=== PATIENT | female | born 1985 | race African-American/Black ===

== ENCOUNTER 2021-11-04 15:42 | Outpatient (CLI) | payer OTHER, SELFPAY ==
[2021-11-04 16:16] LABS: Basophils Absolute Auto 0.1 K/mm3 (0.0-0.1); Basophils Percent Auto 0.6 % (0.2-1.2); Eosinophils Percent Auto 0.1 % (0-4.4); Hematocrit 39.3 % (37.0-47.0); Hemoglobin 13.1 g/dL (12.0-15.0); Immature Granulocyte Absolute 0.04 K/mm3 (0.00-0.031); Immature Granulocyte Percent A 0.4 % (0-0.5); Lymphocytes Absolute Auto 0.98 K/mm3 (0.9-3.2); Mean Corpuscular HGB Conc 33.3 g/dl (32-36); Mean Corpuscular Hemoglobin 29.8 pg (26-34); Mean Corpuscular Volume 89.5 fl (80-100); Mean Platelet Volume 9.6 fl (7.4-10.4); Monocytes Absolute Auto 0.7 K/mm3 (0.1-0.6); Neutrophils Percent Auto 81.9 % (45.5-73.1); Platelet Count Result 289 k/mm3 (150-375); Red Blood Count 4.39 M/mm3 (4.2-5.4); Red Cell Distribution Width 12.5 % (11.5-14.5); White Blood Count 9.8 K/mm3 (4.5-10.0)
[2021-11-04 16:24] LABS: Alanine Aminotransferase 29 U/L (4-35); Albumin Level 4.6 g/dL (3.5-5.1); Alkaline Phosphatase 65 U/L (38-126); Anion Gap 10 mmol/L (8-16); Aspartate Amino Transferase 50 U/L (14-36); Bilirubin,Total 0.9 mg/dL (0.2-1.3); Blood Urea Nitrogen 9 mg/dL (7-17); Calcium 9.4 mg/dL (8.4-10.2); Carbon Dioxide 23 mmol/L (22-30); Chloride 106 mmol/L (98-107); Estimated Glomerular Filt Rate > 60; Glucose 144 mg/dL (65-110); Lipase 247 U/L (23-300); Sodium 139 mmol/L (137-145)
[2021-11-04 16:29] LABS: Pregnancy On Board Control Positive; Urine Pregnancy Test Negative
[2021-11-04 16:30] LABS: Add Urine Microscopic? YES; Appearance Urine Clear (Clear); Bacteria Urine Trace /hpf; Bilirubin Urine Negative (Negative); Blood Urine Negative (Negative); Color Urine Amber (Yellow); Glucose Urine UA Negative (Negative); Ketones Urine Trace mg/dL (Negative); Leukocyte Esterase Ur Negative LEU/UL (Negative); Mucus Urine Heavy /lpf; Nitrate Urine Negative (Negative); Protein Urine 2+ mg/dL (Negative); Specific Grav Ur 1.027 (1.001-1.035); Squamous Epithelial Cell Urine Occasional /hpf (Few); WBC Urine 0-3 /hpf
[2021-11-04 16:37] LABS: Prothrombin Time 12.8 Seconds (11.1-14.7)
[2021-11-04 16:38] LABS: Partial Thromboplastin Time 27.2 SECONDS (22.3-36.8)
== END 2021-11-04 15:43 | disposition home or self-care (01) ==
LOC: ANHLAB 15:50
PROVIDERS: PCP Family Medicine; Visit Provider Family Medicine
DX: R10.9 Unspecified abdominal pain (principal)
CPT/HCPCS: 80053; 81001; 81025; 83690; 85025; 85610; 85730; 87081; 87880

== ENCOUNTER 2021-11-16 11:39 | Outpatient (CLI) | payer OTHER, SELFPAY ==
[2021-11-16 12:08] LABS: Basophils Absolute Auto 0.1 K/mm3 (0.0-0.1); Basophils Percent Auto 0.8 % (0.2-1.2); Eosinophils Percent Auto 0.3 % (0-4.4); Hemoglobin 12.7 g/dL (12.0-15.0); Immature Granulocyte Absolute 0.02 K/mm3 (0.00-0.031); Immature Granulocyte Percent A 0.3 % (0-0.5); Lymphocytes Absolute Auto 1.31 K/mm3 (0.9-3.2); Lymphocytes Percent Auto 17.7 % (18.3-44.2); Mean Corpuscular HGB Conc 33.4 g/dl (32-36); Mean Corpuscular Hemoglobin 29.5 pg (26-34); Mean Corpuscular Volume 88.4 fl (80-100); Mean Platelet Volume 9.6 fl (7.4-10.4); Monocytes Absolute Auto 0.6 K/mm3 (0.1-0.6); Monocytes Percent Auto 7.7 % (2.6-8.5); Neutrophils Absolute Auto 5.4 K/mm3 (1.3-6.7); Neutrophils Percent Auto 73.2 % (45.5-73.1); Platelet Count Result 292 k/mm3 (150-375); Red Cell Distribution Width 12.7 % (11.5-14.5); White Blood Count 7.4 K/mm3 (4.5-10.0)
[2021-11-16 12:20] LABS: Alanine Aminotransferase 21 U/L (4-35); Albumin Level 4.7 g/dL (3.5-5.1); Alkaline Phosphatase 68 U/L (38-126); Anion Gap 10 mmol/L (8-16); Aspartate Amino Transferase 27 U/L (14-36); Bilirubin,Total 0.9 mg/dL (0.2-1.3); Blood Urea Nitrogen 12 mg/dL (7-17); Calcium 9.5 mg/dL (8.4-10.2); Carbon Dioxide 21 mmol/L (22-30); Chloride 108 mmol/L (98-107); Cholesterol 177 mg/dL (0-200); Estimated Glomerular Filt Rate > 60; Glucose 98 mg/dL (65-110); HDL Direct 44 mg/dL; Potassium 3.8 mmol/L (3.4-5.0); Sodium 139 mmol/L (137-145); Triglycerides 67 mg/dL (<150)
[2021-11-16 12:31] LABS: LDL Cholesterol Direct 102 mg/dL
[2021-11-16 12:50] LABS: Free T4 Free Thyroxine 1.01 ng/mL (0.78-2.19); Vitamin D 25 Hydroxy 40.4 ng/mL
[2021-11-16 16:51] LABS: Total Triiodothyronine (T3) 1.23 NG/ML (0.97-1.69)
== END 2021-11-16 11:40 | disposition home or self-care (01) ==
PROVIDERS: PCP Family Medicine; Visit Provider Family Medicine
DX: M62.81 Muscle weakness (generalized) (principal); E55.9 Vitamin D deficiency, unspecified; I10 Essential (primary) hypertension; E03.9 Hypothyroidism, unspecified; E78.5 Hyperlipidemia, unspecified
CPT/HCPCS: 36415; 80053; 80061; 82306; 84439; 84443; 84480; 85025

== ENCOUNTER 2021-12-13 15:29 | Emergency (ER) | payer OTHER, SELFPAY ==
--- NOTE | ~2021-12-13 | CT_ITS ---
EXAMINATION: CT abdomen pelvis w con INDICATION: Generalized abdominal pain TECHNIQUE: Computed tomographic images of the abdomen and pelvis were obtained after the administrati on of 100 cc of Omnipaque 350 intravenous contrast. The dose-length product (DLP) was 692.80 mGy-cm. Automated exposure control and iterative reconstruction technique were employed. COMPARISON: None available FINDINGS: The lung bases are clear. The heart size is normal. The gallbladder is surgically absent. T he liver, spleen, pancreas, and adrenal glands are normal. The kidneys are unremarkable. No pathologi carlene enlarged abdominal or pelvic lymph nodes are identified. There is a 3.7 cm mildly hyperattenuat ing cystic lesion of the left ovary. There is no free intraperitoneal gas or evidence of bowel obstru ction. IMPRESSION: 1. No CT correlate for the patient's symptoms. 2. Probable complicated left ovarian cyst. Follow-up with nonemergent pelvic ultrasound is recommende d. Reviewed, dictated and finalized at location F. HING MACHINE OPERATOR IMPRESSION: 1. No CT correlate for the patient's symptoms. 2. Probable complicated left ovarian cyst. Follow-up with nonemergent pelvic ul trasound is recommended.
[2021-12-13 15:41] VITALS: BP 151/81; PULSE 118; RESP 18; TEMP 37.2; O2SAT 100
[2021-12-13 17:47] VITALS: BP 156/93; PULSE 106; TEMP 37.1; O2SAT 100
--- NOTE | 2021-12-13 18:28 | ED.GENADULT ---
HPI - General Adult General Chief complaint: Unspecified <Ann-Marie Tolbert APRN - Last Filed: 12/13/21 19:10> Stated complaint: extreme pain through entire body <Ann-Marie Tolbert APRN - Last Filed: 12/13/21 19:10> Time Seen by Provider: 12/13/21 18:22 <Ann-Marie Tolbert SUPERVISOR PROCESS TESTING - Last Filed: 12/13/21 19:10> Source: patient <Ann-Marie Tolbert SUPERVISOR PROCESS TESTING - Last Filed: 12/13/21 19:10> Mode of arrival: wheelchair <Ann-Marie Tolbert APRN - Last Filed: 12/13/21 19:10> Limitations: no limitations <Ann-Marie Tolbert APRN - Last Filed: 12/13/21 19:10> History of Present Illness HPI narrative: 36 y/o female presents to the ER for complaints of generalized pain from her lower chest to her thighs. She is not able to describe the pain and becomes confrontational when asked to give any specifics. She says that she has had this pain since May but no one is finding out the cause or doing anything about it. She says that she has seen her PCP a few times for this problem but says they have not done any work up for this. She is sitting in a wheelchair and refuses to stand and walk 5 feet to triage room chair. She says that she needs to be scanned, that she needs IV pain medication and that she needs to be admitted. She says that she had a tubal ligation done in March of last year and that all of her problems started after this. She is not having any fever. No n/v/d. Her bowels have been normal. She denies any urinary symptoms. She says that she smokes marijauna for her pain but she says she just can't do this anymore. She can't smoke enough marijauna to control her pain. <Ann-Marie Tolbert APRN - Last Filed: 12/13/21 19:10> Related Data Allergies/adverse reactions: Allergies Allergy/AdvReac Type Severity Reaction Status Date / Time No Known Allergies Allergy Unverified 03/11/21 11:53 <Ann-Marie Tolbert APRN - Last Filed: 12/13/21 19:10> Review of Systems Constitutional: Constitutional: Reports body ache(s) and Reports fatigue <Ann-Marie Tolbert SUPERVISOR PROCESS TESTING - Last Filed: 12/13/21 19:10> Eyes: Eyes: Denies blurry vision and Denies diplopia <Ann-Marie Tolbert SUPERVISOR PROCESS TESTING - Last Filed: 12/13/21 19:10> ENT: Denies dizziness and Denies headache(s) <Ann-Marie Tolbert, SUPERVISOR PROCESS TESTING - Last Filed: 12/13/21 19:10> Cardiovascular: Cardiovascular: Denies chest pain and Denies lightheadedness <Ann-Marie Tolbert, SUPERVISOR PROCESS TESTING - Last Filed: 12/13/21 19:10> Respiratory: Respiratory: Denies chest congestion, Denies cough and Denies dyspnea <Ann-Marie Tolbert, SUPERVISOR PROCESS TESTING - Last Filed: 12/13/21 19:10> Gastrointestinal: Gastrointestinal: Reports as per HPI and Reports no additional gastrointestinal complaints <Ann-Marie Tolbert SUPERVISOR PROCESS TESTING - Last Filed: 12/13/21 19:10> Genitourinary: Genitourinary: Denies dysuria <Ann-Marie Tolbert, SUPERVISOR PROCESS TESTING - Last Filed: 12/13/21 19:10> Musculoskeletal: Musculoskeletal: Reports no additional musculoskeletal complaints, Reports as per HPI and Reports myalgias <Ann-Marie Tolbert, SUPERVISOR PROCESS TESTING - Last Filed: 12/13/21 19:10> Neurologic: Reports system reviewed and no additional complaints, except as documented, Denies headache(s) and Denies numbness <Ann-Marie Tolbert SUPERVISOR PROCESS TESTING - Last Filed: 12/13/21 19:10> Psychiatric: Psychiatric: Reports other (agitated behavior in triage) <Ann-Marie Tolbert, SUPERVISOR PROCESS TESTING - Last Filed: 12/13/21 19:10> Endocrine: Endocrine: Reports no additional endocrine complaints <Ann-Marie Tolbert SUPERVISOR PROCESS TESTING - Last Filed: 12/13/21 19:10> Hematologic/Lymphatic: Hematologic/Lymphatic: Reports no additional hematologic/lymphatic complaints <Ann-Marie Tolbert SUPERVISOR PROCESS TESTING - Last Filed: 12/13/21 19:10> PMFSH Family History Family History: Family History Grandparent Hypertension Family history of coronary artery disease Other Family history of lupus erythematosus <Ann-Marie Tolbert APRN - Last Filed: 12/13/21 19:10> Social Histor
[2021-12-13 18:50] LABS: Basophils Absolute Auto 0.1 K/mm3 (0.0-0.1); Basophils Percent Auto 0.5 % (0.2-1.2); Eosinophils Percent Auto 0.2 % (0-4.4); Hematocrit 38.3 % (37.0-47.0); Hemoglobin 12.7 g/dL (12.0-15.0); Immature Granulocyte Absolute 0.05 K/mm3 (0.00-0.031); Immature Granulocyte Percent A 0.4 % (0-0.5); Lymphocytes Absolute Auto 2.38 K/mm3 (0.9-3.2); Lymphocytes Percent Auto 20.9 % (18.3-44.2); Mean Corpuscular HGB Conc 33.2 g/dl (32-36); Mean Corpuscular Hemoglobin 29.4 pg (26-34); Mean Corpuscular Volume 88.7 fl (80-100); Mean Platelet Volume 9.5 fl (7.4-10.4); Monocytes Absolute Auto 0.9 K/mm3 (0.1-0.6); Monocytes Percent Auto 7.9 % (2.6-8.5); Neutrophils Percent Auto 70.1 % (45.5-73.1); Platelet Count Result 310 k/mm3 (150-375); Red Blood Count 4.32 M/mm3 (4.2-5.4); Red Cell Distribution Width 12.7 % (11.5-14.5); White Blood Count 11.4 K/mm3 (4.5-10.0)
[2021-12-13 19:01] LABS: Rheumatoid Factor < 8.6 IU/ML (<12)
[2021-12-13 19:03] LABS: Alanine Aminotransferase 15 U/L (4-35); Albumin Level 4.6 g/dL (3.5-5.1); Alkaline Phosphatase 69 U/L (38-126); Anion Gap 9 mmol/L (8-16); Aspartate Amino Transferase 26 U/L (14-36); Bilirubin,Total 0.9 mg/dL (0.2-1.3); Blood Urea Nitrogen 9 mg/dL (7-17); CRP < 0.5 mg/dL (<1.0); Calcium 9.4 mg/dL (8.4-10.2); Carbon Dioxide 21 mmol/L (22-30); Chloride 109 mmol/L (98-107); Estimated CRCL calculation 115 ml/min; Estimated Glomerular Filt Rate > 60; Glucose 111 mg/dL (65-110); Lipase 229 U/L (23-300); Potassium 3.4 mmol/L (3.4-5.0); Sodium 139 mmol/L (137-145)
[2021-12-13 19:46] LABS: Erythrocyte Sedimentation Rate 14 mm/hr (0-20)
[2021-12-13] MEDS: SODIUM CHLORIDE 0.9% IV 1,000 ML 999 ML IV CONT (22:06)
[2021-12-13] MEDS: KETOROLAC 30 MG/ML VIAL (*BKC) IV PUSH (22:29)
[2021-12-13 22:38] LABS: Add Urine Microscopic? YES; Appearance Urine Clear (Clear); Bilirubin Urine Negative (Negative); Blood Urine Negative (Negative); Color Urine Yellow (Yellow); Glucose Urine UA Negative (Negative); Ketones Urine 1+ mg/dL (Negative); Leukocyte Esterase Ur Negative LEU/UL (Negative); Mucus Urine Heavy /lpf; Nitrate Urine Negative (Negative); Protein Urine Negative (Negative); Squamous Epithelial Cell Urine Occasional /hpf (Few); Urobilinogen Urine Negative mg/dL (<2.0); WBC Urine 0-3 /hpf
--- NOTE | 2021-12-14 00:26 | PC.NURSE ---
Pt currently in ED lobby in . Per ED RN, pt's mother will be coming to pick her up.
[2021-12-14 00:29] VITALS: BP 156/100; PULSE 98; RESP 18; O2SAT 100
--- NOTE | 2021-12-14 00:33 | PC.NURSE ---
Addendum entered by Nitish Gomez RN 12/14/21 01:12: IV was removed from patient prior to discharge. pt stating I can't twist my back and I can't stand and I have all these bruises that the doctor didn't look at. at this time pt stood up and began taking off clothing and pointing at abdomen and sides saying Do you not see all these bruises!? no bruises were observed by this RN. pt then points at legs and states Look at these bruises here! and my veins are popping out! this RN noted no bruises once again and noted no veins popping out or any thing else out of the ordinary and this RN communicated this to the pt. Original Note: pt very upset upon discharge. stating How can you be discharging me when you havent found anything, there's something seriously wrong! I can't lay flat, my back pain is a 10/10, I can't even have sex anymore because I'm so sick, I normally only have sex to relieve my back pain, I feel like I'm dying. pt also states My family member was admitted for 30 days and they only found his cancer after thirty days and I need to be admitted... EDP was at the bedside multiple times to talk to pt and explain pt was stable for discharge. This RN educated pt to follow up with PCP to possibly have further labs and tests done to address pt concerns.
--- NOTE | 2021-12-14 00:34 | PC.NURSE ---
Pt yelling that she is still in pain and she doesn't want to go. Pt's mother reports she won't take pt home bc she can't drive at night . Pt drove here and her car is currently in the [address] in front of the ED. This RN and ED charge nurse currently speaking with pt and her mother, who continue to yell at staff that no pain medication was prescribed for pt's pain, and pt's pcp told her to come to ED.
--- NOTE | 2021-12-14 00:59 | PC.NURSE ---
flask cleaner called to intake/triage. This RN observed patient screaming hysterically that she can't go home, that something is really wrong with her, and refusing to leave with her mother. Upon arrival I spoke with the patients mother who stated I can't take her home like this, You all need to admit her to this hospital. This RN explained that the blood work, and imaging all showed that the patient was medically cleared to be discharged, and that the patient had been discharged to follow up with her pcp. Mother states I am not taking her home, you need to see her for her nerve pain, you need to send her to a psych facility. This RN asked the patient if she wanted to be checked back in for her nerve pain, or if she was SI/HI and or had a plan on how to hurt herself and or anyone else. Patient stated I am going to pray to Gareth and all the book of revelations to heal. Patient denies SI/HI and has no plan/intentions to harm herself or others at this time. Mother proceeded to elementary instructional coach the patient by saying You need to tell them the that you will kill yourself because of this pain, you cant be treated like this. We have had her to 3 other hospitals, [facility], and some place in [place]. This RN explained that if she wants to be seen again we can always check her back in and see her for what ever complaint that she wishes, patient states I want medicine, I cant keep going with this pain. The mother then stated I am not supposed to drive at night, I will come back tomorrow and pick her up. This RN explained that she is discharged and can not be held in the er over night. Pt mother stated what about her insurance, cant they give her a ride to take her home? This RN proceeded to speak with Britany at [employer] and set up a ride. Pt was seen ambulatory with steady gait to get into Dr[facility] [employer] [facility] - [place] Liang at [phone].
--- NOTE | 2021-12-14 01:23 | PC.NURSE ---
Addendum entered by LISETH Jacobo 12/14/21 01:27: Correct time of phone call was 0015. Original Note: 0045 With patient's permission, updated patient's mother. Advised her of test results, imaging results, and that she was being discharged home. Advised her to follow up with her primary care doctor. Advised to take acetaminophen/ibuprofen as needed for pain. All questions answered. Mom stated that she would be on the way to pick her up.
== END 2021-12-14 00:03 | disposition home or self-care (01) ==
PROVIDERS: Nurse Practitioner Family; Emergency Provider Emergency Medicine; PCP Family Medicine
DX: F45.9 Somatoform disorder, unspecified (principal); R93.89 Abnormal findings on diagnostic imaging of other specified body structures
CPT/HCPCS: 36415; 74177; 80053; 81001; 81025; 83690; 85025; 85652; 86038; 86140; 86430; 96361; 96374; 99284; J1885; J7030; Q9967

== ENCOUNTER 2022-07-19 00:14 | Day surgery (SDC) | payer MEDICARE, MEDICAID, SELFPAY ==
[2022-07-15 08:37] VITALS: BMI 27.0
--- NOTE | 2022-07-15 08:45 | PC.NURSE ---
Report to the Outpatient Waiting Room, entrance under the green pavilion located off [facility], at time 0930 on date 07/19/22. OR Time: 1130. Time changes happen often and if your time is changed the preop area will call you the afternoon before. - You and your visitor will be asked to self-screen and do not enter if you have any COVID symptoms. - Only one visitor and NO children visitors are allowed at this time. - The patient visitor is requested to leave or wait in car when not with patient due to restrictions. - A mask is required within the hospital. Patients may have clear liquids (water, carbonated beverages, clear teas, apple juice) until 3 hours prior to surgery with a maximum of 20 ounces. - No food from midnight until time of surgery Take the following medications with a SIP of water the morning of surgery: N/A Medications to discontinue per physician: N/A Date to take last dose: N/A Please no make-up, nail spanish, hairspray, perfume, deodorant, or body powder the day of surgery. No jewelry (including any body piercings) or valuables the day of surgery, leave them at home. Please take a shower or bath the night before, or the morning of, surgery with an antibacterial soap. Wear comfortable, loose fitting clothing. - Jewelry must be removed prior to entering the operating room. Rings and piercings that are not removed may be cut off. - The hospital will not accept responsibility for valuables. - Please leave all valuables, including medications, at home the day of surgery. If you are going home after surgery, a licensed airport driver must drive you home. - NO public transportation without another adult. - We recommend that an adult stay with you for 24 hours following discharge. - We also recommend that you do not drive, make important decision, drink alcoholic beverages, or take any drugs that were not prescribed by your health care provider for at least 24 hours after your discharge time. Follow any additional instructions given to you from your surgeon. If you or anyone in your household have experienced Covid symptoms in the past week, please notify your surgeon or the nurse liaison at the phone number below for possible testing. Telephone instructions given to PT - ROCKY RAE and asked if any additional questions and then verbalized understanding. Patient advised to call surgeon office or pre surgery nurse liaison [phone] if any additional questions.
--- NOTE | ~2022-07-19 | US_ITS ---
EXAMINATION: US guide intraoperative INDICATION: Surgical placement of IUD TECHNIQUE: Intraoperative sonographic images of the uterus are submitted for review. COMPARISON: None available FINDINGS: The IUD appears to be in expected position in the endometrial canal. Please refer to proced ure note for full details. IMPRESSION: 1. Please refer to procedure note for full details. Reviewed, dictated and finalized at location A.
[2022-07-19] MEDS: LACTATED RINGERS 1,000 ML 30 ML IV CONT (10:40)
[2022-07-19] MEDS: ACETAMINOPHEN 500 MG TABLET 1000 MG PO (10:40)
--- NOTE | 2022-07-19 10:41 | P.PNAN_ITS ---
Anes - Initial Pre Proc Eval Procedure: Operation Date: 07/19/22 11:30 Proposed Procedures p Hysteroscopy with Dilation and Curettage, Possible Myosure, Placement of Kyleena Intrauterine Device - Jennifer Ching DO Date/Time: 07/19/22 10:41 Surgeon: Jennifer Ching DO Pre Op Diagnosis: Abnormal Uterine bleeding Patient Data Age: 37 Gender: F Height: 1.64 m Weight: 72.5 kg Allergies Allergy/AdvReac Type Severity Reaction Status Date / Time No Known Allergies Allergy Unverified 07/15/22 08:36 Home Medications Medication Instructions Recorded Confirmed Type No Home Medications 07/15/22 07/15/22 History Patient hx anesthesia problems: none Family hx anesthesia problems: none Results Review: All pre-operative results and documents have been reviewed as part of the pre- operative evaluation. [facility] Family History Family History Grandparent Hypertension Family history of coronary artery disease Other Family history of lupus erythematosus Social History Social History Smoking status: Former smoker Tobacco type: cigarettes Second hand tobacco smoke exposure: No Additional smoking assessment comments: DID NOT GIVE END DATE OR HISTORY Alcohol intake: never Substance use: current Substance use type: marijuana Living arrangements: with family Spiritual care concerns: No Anes - Eval Final PreProcedure Day of Procedure 07/19/22 10:41 Patient weight: overweight Heart: regular rate and rhythm Lungs: clear to auscultation and normal air movement Airway: Mallampati scale class II Neurological: alert and oriented Last oral intake: >/= 8 hours ASA classification: II Emergent: no Anesthetic plan: proceed Anesthesia type and monitoring: general GIVS and LMA Results Review: All pre-operative results and documents have been reviewed as part of the pre-o perative evaluation. Informed Consent: The patient's anesthetic plan and its attendant risks and benefits were discussed with the patient/family/POA. Questions were solicited and answers provided to the satisfaction of the patient/family/POA.
[2022-07-19 10:52] VITALS: BP 138/90; PULSE 86; RESP 14; TEMP 36.6; O2SAT 100
--- NOTE | 2022-07-19 11:52 | P.HP_ITS ---
H&P: HPI History of Present Illness Date/Time: 07/19/22 11:52 Chief Complaint: I'm here for my D&C Narrative: Patient here for hysteroscopy, D&C and Kyleena placement for AUB and dysmenorrhea. Review of Systems Review of Systems: All systems reviewed & are unremarkable except as noted in HPI and below PMFSH Family History Family History Grandparent Hypertension Family history of coronary artery disease Other Family history of lupus erythematosus Social History Social History Smoking status: Former smoker Tobacco type: cigarettes Second hand tobacco smoke exposure: No Additional smoking assessment comments: DID NOT GIVE END DATE OR HISTORY Alcohol intake: never Substance use: current Substance use type: marijuana Living arrangements: with family Spiritual care concerns: No Meds Home Medications and Allergies Home Medications Medication Instructions Recorded Confirmed Type No Home Medications 07/15/22 07/15/22 History Allergies Allergy/AdvReac Type Severity Reaction Status Date / Time No Known Allergies Allergy Verified 07/19/22 10:57 Vital Signs Vital Signs - 24 hr 07/19/22 10:52 Temperature 36.6 C Pulse Rate 86 Respiratory Rate 14 Blood Pressure 138/90 Pulse Oximetry 100 Oxygen Delivery Room Air Exam Const: General: comfortable and no acute distress Neck: Neck: supple Resp: Effort & Inspection: normal respiratory effort Auscultation: clear to auscultation bilaterally Cardio: Rate: regular rate Rhythm: regular rhythm GI: GI Palp: Yes Soft to palpation Auscultation: normal bowel sounds Skin: Wounds: no wounds Neuro: General: gait normal Speech: normal speech Motor exam (neuro): 5/5 motor strength present throughout Psych: Mental Status: mental status grossly normal Affect: normal affect Assessment and Plan Assessment and plan (1) Abnormal uterine bleeding: Code(s): N93.9 - Abnormal uterine and vaginal bleeding, unspecified Status: Acute (2) Dysmenorrhea: Code(s): N94.6 - Dysmenorrhea, unspecified Status: Acute Plan Hysteroscopy, D&C, possible Myosure. Kyleena IUD placement
--- NOTE | 2022-07-19 11:52 | WPDHPUPDATE1 ---
History and Physical Update Update Date/Time: 07/19/22 11:52 History and Physical has been reviewed, including an updated exam of the patient. There are NO changes in the patient's condition. Risks, benefits, and alternatives have been discussed and questions answered. Patient agrees to proceed with procedure.
[2022-07-19] MEDS: LIDOCAINE HCL 1% PF 30 ML VIAL INFILTRATE (12:35)
--- NOTE | 2022-07-19 12:41 | SUR.OPER ---
Surgeon brought in [facility] IUD from office. 19.5MG S/N [id number] EXP: LOT#: [id number]
[2022-07-19 12:42] VITALS: BP 139/90; PULSE 88; RESP 12; O2SAT 100
--- NOTE | 2022-07-19 12:50 | P.OP_ITS ---
Procedure Note - Detailed Date of Procedure 07/19/22 Pre-op Diagnosis Abnormal Uterine bleeding Dysmenorrhea Post-op Diagnosis Same Procedure Performed Hysteroscopy, D&C, Kyleena IUD placement Surgeon Jennifer Ching DO Epidemiology Investigator Jordyn Berg Indications Abnormal uterine bleeding, dysmenorrhea Findings Normal appearing vulva and vaginal canal. Large cervix. The contour and size of the uterine cavity were completely normal. Uterus sounded to 7 cm. Both tubal ostia were visualized. No endometrial masses or lesions. Description of Procedure Patient was taken to the operating room where she was placed under IV sedation. No preoperative antibiotics were indicated. A time-out was performed. A speculum was placed in the vagina and the anterior lip of the cervix was grasped with a single-tooth tenaculum. Paracervical block was performed using plain lidocaine. The cervix was sequentially dilated up to accommodate the hysteroscope. The scope was introduced and a survey of the endometrial cavity revealed a normal size and contour, no lesions or masses. Both tubal ostia were visualized. The scope was then removed and the uterine cavity was sounded to a depth of 7 cm. A thorough sharp and and a moderate amount of tissue was returned. This was passed off for pathology. The IUD was then prepared. The IUD was inserted under direct visualization with ultrasound through the abdominal wall. The device was pulled back 1 cm, the arms were opened and the device was placed back against the fundus. Fundal location was confirmed with ultrasound. The insertion catheter was removed and the strings were trimmed to 3 cm. The tenaculum was removed and the puncture sites were noted to be hemostatic. All instruments were removed and the vagina was wiped clean of blood clots. The patient was taken to the recovery room in stable condition. All instrument and sponge counts were correct at the conclusion of the procedure. Estimated Blood Loss 5 IV Fluids 800 Drains No Packing No Pathology Yes Complications No immediate complications Condition Stable Disposition PACU
[2022-07-19 13:15] VITALS: BP 151/95; PULSE 124; RESP 20
[2022-07-19] MEDS: oxyCODONE HCL (*CRX) 5 MG TAB IR PO (13:33)
[2022-07-19 13:45] VITALS: BP 145/99; PULSE 86; RESP 16
[2022-07-19 14:15] VITALS: BP 140/80; PULSE 89
[2022-07-19 14:45] VITALS: BP 126/87; PULSE 74
== END 2022-07-19 15:03 | disposition home or self-care (01) ==
PROVIDERS: PCP Family Medicine; Visit Provider Obstetrics & Gynecology Gynecologic Oncology
PROC: 0U5B8ZZ Destruction of Endometrium, Via Natural or Artificial Opening Endoscopic (ICD-10-PCS; CPT 58563; principal; 2022-07-19 11:30)
DX: N93.9 Abnormal uterine and vaginal bleeding, unspecified (principal); N94.6 Dysmenorrhea, unspecified; Z30.430 Encounter for insertion of intrauterine contraceptive device; F12.90 Cannabis use, unspecified, uncomplicated; Z87.891 Personal history of nicotine dependence
CPT/HCPCS: 58558; 76998; 88305; A9270; J2250; J2704; J3010; J7030; J7120

== ENCOUNTER 2024-08-02 22:59 | Emergency (ER) | payer MEDICARE, MEDICAID, SELFPAY ==
[2024-08-02 23:02] VITALS: BP 181/94; PULSE 126; RESP 18; TEMP 36.5; O2SAT 100
[2024-08-03] MEDS: SODIUM CHLORIDE 0.9% IV 1,000 ML 999 ML IV CONT (01:29)
[2024-08-03 01:36] LABS: Basophils Absolute Auto 0.1 K/mm3 (0.0-0.1); Basophils Percent Auto 0.7 % (0.2-1.2); Eosinophils Percent Auto 0.1 % (0-4.4); Hematocrit 39.1 % (37.0-47.0); Hemoglobin 13.5 g/dL (12.0-15.0); Immature Granulocyte Absolute 0.06 K/mm3 (0.00-0.031); Immature Granulocyte Percent A 0.5 % (0-0.5); Lymphocytes Absolute Auto 1.93 K/mm3 (0.9-3.2); Lymphocytes Percent Auto 16.5 % (18.3-44.2); Mean Corpuscular HGB Conc 34.5 g/dl (32-36); Mean Corpuscular Volume 86.9 fl (80-100); Mean Platelet Volume 9.2 fl (7.4-10.4); Monocytes Absolute Auto 0.9 K/mm3 (0.1-0.6); Monocytes Percent Auto 7.6 % (2.6-8.5); Neutrophils Absolute Auto 8.8 K/mm3 (1.3-6.7); Neutrophils Percent Auto 74.6 % (45.5-73.1); Platelet Count Result 329 k/mm3 (150-375); Red Cell Distribution Width 12.6 % (11.5-14.5); White Blood Count 11.7 K/mm3 (4.5-10.0)
[2024-08-03 01:44] LABS: Add Urine Microscopic? YES; Appearance Urine Clear (Clear); Bacteria Urine None Seen /hpf; Bilirubin Urine Negative (Negative); Blood Urine 3+ (Negative); Color Urine Dark Yellow (Yellow); Glucose Urine UA Trace mg/dL (Negative); Ketones Urine 2+ mg/dL (Negative); Leukocyte Esterase Ur Negative LEU/UL (Negative); Nitrate Urine Negative (Negative); Non Pathogenic Casts 0-2; Protein Urine 2+ mg/dL (Negative); Specific Grav Ur 1.031 (1.001-1.035); Squamous Epithelial Cell Urine None Seen /hpf (Few); WBC Urine 0-5 /hpf (0-3); pH Urine 5.5 (5.0-9.0)
[2024-08-03 01:46] LABS: Alanine Aminotransferase 43 U/L (6-35); Albumin Level 4.7 g/dL (3.5-5.1); Alkaline Phosphatase 63 U/L (38-126); Anion Gap 9 mmol/L (4-12); Aspartate Amino Transferase 39 U/L (14-36); Bilirubin,Total 1.3 mg/dL (0.2-1.3); Blood Urea Nitrogen 16 mg/dL (7-17); Calcium 9.5 mg/dL (8.4-10.2); Carbon Dioxide 26 mmol/L (22-30); Chloride 106 mmol/L (98-107); Estimated Glomerular Filt Rate > 60; Glucose 113 mg/dL (65-110); Potassium 3.1 mmol/L (3.4-5.0); Sodium 141 mmol/L (137-145)
--- NOTE | 2024-08-03 01:49 | ED.PSYCH ---
HPI - Psych General Chief Complaint: Psychiatric Symptoms <FELIPE Elizabeth Last Filed: 08/03/24 03:23> Stated Complaint: psych <FELIPE Elizabeth Last Filed: 08/03/24 03:23> Time Seen by Provider: 08/03/24 00:21 <FELIPE Elizabeth Last Filed: 08/03/24 03:23> Source: patient and family <FELIPE Elizabeth Last Filed: 08/03/24 03:23> Mode of arrival: ambulatory <FELIPE Elizabeth Last Filed: 08/03/24 03:23> Limitations: no limitations <FELIPE Elizabeth Last Filed: 08/03/24 03:23> History of Present Illness HPI Narrative: Patient is a 39-year-old female who presents to the ED with concern for . Patient reports that she is approximately 43 weeks and 5 days gestation. she is unsure which number brain is for her. She does have of 3 children of her own at home. She states yesterday her water broke and she lost her mucus plug. She does currently complain of pain to her crotch. Denies abdominal pain. She does not currently see an OBGYN. Patient has hx of bipolar disorder. at bedside reports that she has been off of her medications for several years. He states she has had episodes like this before where she believes she is . <FELIPE Elizabeth Last Filed: 08/03/24 03:23> Related Data Home Medications: Home Medications Medication Instructions Recorded Confirmed olanzapine 15 mg tablet 15 mg PO DAILY 01/18/23 <FELIPE Elizabeth Last Filed: 08/03/24 03:23> Allergies/Adverse Reactions: Allergies Allergy/AdvReac Type Severity Reaction Status Date / Time No Known Allergies Allergy Verified 04/12/23 09:57 <FELIPE Elizabeth Last Filed: 08/03/24 03:23> Review of Systems Review of Systems: All systems reviewed & are unremarkable except as noted in HPI. <Lily Koenig PA-C - Last Filed: 08/03/24 03:23> All systems reviewed & are unremarkable except as noted in HPI and below <Lily Koenig PA-C - Last Filed: 08/03/24 03:23> PMFSH Past Medical History Medical History: Medical History (Updated 08/03/24 @ 04:58 by Alex Zhou MD) Anxiety Bipolar disorder <Lily Koenig PA-C - Last Filed: 08/03/24 03:23> Family History Family History: Family History Grandparent Hypertension Family history of coronary artery disease Father Cancer Other Family history of lupus erythematosus <Lily Koenig PA-C - Last Filed: 08/03/24 03:23> Social History Social History: Social History Smoking status: Former smoker Tobacco type: cigarettes Second hand tobacco smoke exposure: No Additional smoking assessment comments: DID NOT GIVE END DATE OR HISTORY Alcohol intake: never Substance use: current Substance use type: marijuana Living arrangements: alone Occupation/Education: unemployed Spiritual care concerns: No Agree to blood products: No <Lily Koenig PA-C - Last Filed: 08/03/24 03:23> Exam Narrative: GENERAL: Well appearing, well-nourished, non-toxic, in no acute distress. HEAD: Normocephalic, atraumatic. RESPIRATORY: Airway patent, respirations nonlabored. Clear to auscultation bilaterally, no rales, rhonchi, wheezing. CARDIOVASCULAR: Tachycardic with regular rhythm without murmurs, rubs, or gallops. ABDOMINAL: Soft, no significant tenderness throughout abdomen. Abdomen does not appear gravid. Normoactive BS. MUSCULOSKELETAL: Moves all extremities. No gross deformities. SKIN: Warm, dry, normal color. NEURO: A&O X3. Speech clear. Cranial nerves II-XII grossly intact. Steady gait. No ataxic movements. PSYCHIATRIC: Flat affect. Cooperative. Does not appear acutely externally psychotic. <Lily Koenig PA-C - [place]
[2024-08-03 01:59] LABS: Acetaminophen < 10 ug/mL (10-30); Ethanol < 10 mg/dL (<10); Salicylate < 1.0 mg/dL (2-20)
[2024-08-03 02:05] LABS: Pregnancy On Board Control Positive; Urine Pregnancy Test Negative
[2024-08-03 02:06] VITALS: BP 178/84; PULSE 118; RESP 20; TEMP 36.7; O2SAT 97
[2024-08-03 02:10] LABS: BEDSIDEPREGUCG Negative (Negative)
[2024-08-03 02:12] LABS: Influenza A QL RT-PCR Negative (Negative); Influenza B QL RT-PCR Negative (Negative); SARS-CoV-2 RNA PCR Negative (Negative)
[2024-08-03 02:16] LABS: Thyroid Stimulating Hormone 0.342 uIU/mL (0.465-4.680)
[2024-08-03 02:18] LABS: Amphetamine Screen Urine Negative (Negative); Barbiturate Screen Urine Negative (Negative); Benzodiazepines Screen Urine Negative (Negative); Cannabinoid Screen Urine Positive (Negative); Cocaine Screen Urine Negative (Negative); Methadone Screen Urine Negative (Negative); Opiate Screen Urine Negative (Negative); Phencyclidine Screen Urine Negative (Negative)
[2024-08-03] MEDS: POTASSIUM CHLORIDE 20 MEQ ER TABLET 40 MEQ PO (02:42)
== END 2024-08-03 06:08 | disposition home or self-care (01) ==
PROVIDERS: Emergency Provider Physician Assistant
DX: F22 Delusional disorders (principal); F31.9 Bipolar disorder, unspecified; F99 Mental disorder, not otherwise specified; Z20.822 Contact with and (suspected) exposure to COVID-19
CPT/HCPCS: 36415; 80053; 80143; 80179; 80307; 81001; 81025; 82077; 83735; 84443; 85025; 87636; 96360; 96361; 99284; A9270; J7030

== ENCOUNTER 2025-01-17 15:05 | Emergency (ER) | payer MEDICARE, MEDICAID, SELFPAY ==
--- OUTSIDE RECORDS SUMMARY | 2025-01-17 15:08 | XMS_ITS ---
Author Organization [facility] [employer] [facility] Address [address] [facility] [address] [place] [address] Care Team Providers Care Control Systems Eng Name Role Phone Josafat Jeong, Caridad Primary Care Provider Unavail able Song Whitfield Unavailable [phone] Netoker ASSOCIATE DEAN-C, Kristen Unavailable Unavailabl e Migration, Provider Unavailable Unavailable REASON FOR VISIT EMR-Carson Social History Sex Assigned At : Social History Observation Description Sex Assigned At Female Encounters Encounter Location Date Provider Diagnosis [facility] [email or web address] [place] [id number] [address] 03/09/2024 Provider Migration Plan Of Treatment No Information Progress Notes * MICHAEL RAEB:05/23 (38 yo F)Acc No.[id number]:03/09/2024 Patient: Conchis DONOVANTHUAN ROCKY :1985 A ge:38 Y S ex:Female Address:[address], [place], [address] Subjective: * Chief Complaints: * E MR-Carson * Medical History: * Surgical History: * Hospitalization/Major Diagno stic Procedure: * Medications: Objective: * Vitals: * Physical Examination: Assessment: Plan: * Treatment: * Procedure Codes: * true * Date: Generated for Printi ng/Faxing/eTransmitting on: 0 01/17/2025 03:08 PM CDT
--- OUTSIDE RECORDS SUMMARY | 2025-01-17 15:08 | XMS_ITS | Clinical Summary ---
Author Organization [facility] [employer] Address [address] [place] [address] Care Team Providers Care Entry Level Marketing Assistant Name Role Phone Unavailable Primary Care Provider Unavailabl e Source Comments [facility],non-owned Affiliates and Associated Physician Practices is amultiple site organization consisting of ambulatory clinics and hospital sitesin [place], [place], [place] and [place]. This disclosure is being madepursuant to the Care Everywhere program and may not contain all information available regarding this patient. Last updated 18.[facility] [employer] Allergies No known active allergies Medications * Be aware that medications may not be up to date on this document. Alwaysverify current medications with the patient. Medication Sig Dispensed Refills Start Date End Date Status divalproex DR (Depakote) 500 MG tabletIndications:Man ic Phase of Bipolar Mood Disorder Take 1 (one) tablet by mouth 2 times daily Reasons: Manic Phase of Manic-Depression 60 tablet 01/09/2023 Active OLANZapine (ZyPREXA) 15 MG tabletIndications:Man ic Phase of Bipolar Mood Disorder Take 1 (one) tablet by mouth at bedtime Reasons: Manic Phase of Manic-Depression 30 tablet 01/09/2023 Active Active Problems Patient Care Coordination No te Formatting of this note migh t be different from the original. [facility] [place] Problem Noted Date Diagnosed Date Bipolar disorder, current ep isode manic severe with psychotic features 01/09/2023 Abnormal uterine bleeding (AUB) 09/11/2017 Resolved Problems Problem Noted Date Diagnosed Date Resolved Date Severe episode of recurrent major depressive disorder, without psychotic features 01/04/2023 Psychosis, unspecified psychosis type 12/28/2022 01/09/2023 Social History Tobacco Use Types Packs/Day Years Used Date Smoking Tobacco: Never Smokeless Tobacco: Never Tobacco Cessation:Counseling Given: Not Answered Alcohol Use Standard Drinks/Week Comments Not Currently 0 (1 standard drink = 0.6 oz pur e alcohol) AUDIT-C Answer Date Recorded Q1: How often do you have a drink containing alcohol? Never 12/28/2022 Q2: How many drinks containi ng alcohol do you have on a typical day when you are drinking? Patient does not drink Q3: How often do you have si x or more drinks on one occasion? Never 12/28/2022 Overall Financial Resource Strain (CARDIA) Answe r Date Recorded How hard is it for you to pa y for the very basics like food, housing, medical care, and heating? Somewhat hard 12/28/2022 [facility] - Occupational Stress Questionnaire Answer Date Recorded Do you feel stress - tense, restless, nervous, or anxious, or unable to sleep at night because your mind is troubled all the time - these days? To some extent 12/28/2022 Hunger Vital Sign Answer Date Recorded Within the past 12 months, y ou worried that your food would run out before you got the money to buy more. Sometimes true Within the past 12 months, t he food you bought just didn't last and you didn't have money to get more. Sometimes true 05/2023 PRAPARE - Transportation Answer Date Re corded In the past 12 months, has l ack of transportation kept you from medical appointments or from getting medications? No 05/2023 In the past 12 months, has l ack of transportation kept you from meetings, work, or from getting things needed for daily living? Yes 12/28/2022 Housing Stability Vital Sign Answer Bryant e Recorded In the last 12 months, was t here a time when you were not able to pay the mortgage or rent on time? Yes 12/28/2022 In the last 12 months, how many places have you lived? 1 12/28/2022 In the last 12 months, was t here a time when you did not have a steady place to sleep or slept in a senior care (including now)? No 12/28/2022 Sex and Gender Information Value Date Recorded Sex Assigned at Not on file Gender Identity Not on file Sexual Orientation Not on file Last Filed Vital Signs Vital Sign Reading Time Taken Comments Blood Pressure 108/73 01/09/2023 7:27 AM CDT Pulse 84 01/09/2023 7:27 AM CDT Temperature 36.6 C (97.9 F) 01/09/2023 7:27 AM CDT Respiratory Rate 18 01/09/2023 7:27 AM CDT Oxygen Saturation 100% 01/09/2023 7:27 AM CDT Inhaled Oxygen Concentration - - Weight 65.5 kg (144 lb 6.4 oz) 12/28/2022 10:23 AM SEMICONDUCTOR PACKAGES TESTER Height 163.8 cm (5' 4.5 ) 12/28/2022 10:23 AM CS T Body Mass Index 24.4 12/28/2022 10:23 AM SEMICONDUCTOR PACKAGES TESTER Plan of Treatment Health Maintenance Due Date Last Done Comments MAMMOGRAM 1985 MEDICARE AWV 12 MONTHS 1985 HEPATITIS C SCREENING 06/06/2002 DTAP/TDAP/TD VACCINES (1 - Tdap) 2003 HEPATITIS B VACCINE (1 of 3 - 19+ 3-dose series) 2003 PAP with HPV 09/11/2022 09/11/2017 COVID-19 VACCINE ( - 2023-2 5 season) 2024 INFLUENZA VACCINE (#1) 2024 LIPID TESTING 12/31/2027 12/30/2022 ZOSTER VACCINE (1 of 2) 2034 HIV SCREENING Completed 09/11/2017 HIB VACCINE Aged Out No longer eligi ble based on patient's age to complete this topic HPV VACCINE Aged Out No longer eligi ble based on patient's age to complete this topic MENINGOCOCCAL (Group B) VACC INE SHARED DECISION-MAKING Aged Out No longer eligibl e based on patient's age to complete this topic MENINGOCOCCAL GROUPS A/C/Y/W VACCINE Aged Out No longer eligible b ased on patient's age to complete this topic PNEUMOCOCCAL VACCINE Aged Out No long er eligible based on patient's age to complete this topic Procedures Procedure Name Priority Date/Time Associated Diagnosis Comments LIPID PROFILE Routine 12/30/2022 6:15 AM [employer]IC[employer] PACK[employer] TESTER PAP LB HPV HR DNA Routine 09/11/2017 2:0 3 PM [employer]IC[employer] PACK[employer] TESTER Vaginal bleeding HIV-1 HIV-2 ANTIBODY + HIV P24 AG PANEL Routine 09/11/2017 2:03 PM SEMIC[employer]CTOR PACKAGES TESTER Vaginal bleeding from Last 3 Months or Most Recently Relevant to Health Maintenance Results * LIPID PROFILE (12/30/2022 6:15 AM SEMICONDUCTOR PACKAGES TESTER) Pathologist [facility] Cholesterol 180 <200 mg/dL 12/30/2022 7:58 AM [facility] Triglycerides 67 <150 mg/dL 12/30/2022 7:58 AM [facility] HDL Cholesterol 50 >40 mg/dL 7:58 AM [facility] Chol HDL Ratio 3.6 1.0 - 6.0 12/30/2022 7:58 AM [facility] LDL Calculated 117 65 - 130 mg/dL 12/30/2022 7:58 AM [facility] VLDL Calculated 13 <=30 mg/dL 3 7:58 AM [facility] Blood BLOOD SPECIMEN / Unknown Lab Venipuncture / Unknown 12/30/2022 6:15 AM [employer] PACK[employer] TESTER 12/30/2022 6:19 AM [facility] - 12/30/2022 7:58 AM [facility] Lipid Profile Comment: CHOLESTEROL LEVEL..................CLINICAL INTERPRETATION LESS THAN 200 MG/DL..............................DESIRABLE 200-239 MG/DL..............................BORDERLINE HIGH GREATER THAN 240 MG/DL................................HIGH LDL-CHOLESTEROL LEVEL..............CLINICAL INTERPRETATION LESS THAN 100 MG/DL................................OPTIMAL 100-129 MG/DL.................................NEAR OPTIMAL GREATER THAN 160 MG/DL...........................HIGH RISK HDL RISK LEVEL GREATER THEN 60 MG/DL............................DECREASED 40-60 MG/DL........................................AVERAGE LESS THAN 40 MG/DL...............................INCREASED TRIGLYCERIDE LEVEL..................CLINICAL INTERPRETATION LESS THAN 150 MG/DL...............................DESIRABLE 150-199 MG/DL...............................BORDERLINE HIGH 200-499 MG/DL..........................................HIGH GREATER THAN 500..................................VERY HIGH THE NATIONAL CHOLESTEROL EDUCATION PROGRAM HAS SET THE ABOVE GUIDELINES (REFERANCE VALUES) FOR CHOLESTEROL AND HDL. RISK ASSOCIATED WITH CHOLESTEROL/HDL RATIOS RISK....................MALE RATIO.............FEMALE RATIO 1/2 AVERAGE.................<3.4.......................<3.3 LOW RISK.................... 4.0 ...................... 3.8 AVERAGE..................... 5.0 ...................... 4.5 2X AVERAGE.................. 9.5 ...................... 7.0 3X AVERAGE...................>23........................>11 Kendra Dixon MD LAB - CHEMISTRY NIDIA DEVINE Performing Organization Address City/[facility]/ZIP Co de Phone Number [facility] [address] * HIV-1 HIV-2 ANTIBODY + HIV P24 AG PANEL (09/11/2017 2:03 PM SEMICONDUCTOR PACKAGES TESTER) HIV1/2 Ab + P24 Ag Non Reactive Non Reactive 09/11/2017 6:13 PM SEMICONDUCTOR PACKAGES TESTER [facility] Blood BLOOD SPECIMEN / Unknown Venipuncture / Unknown 09/11/2017 2:03 PM SEMIC[employer]CTOR PACKAGES TESTER 09/11/2017 2:27 PM SEMIC[employer]CTOR PACKAGES TESTER Narrative [facility] - 09/11/2017 6:13 PM SEMIC[employer]CTOR PACKAGES TESTER No Laboratory evidence of HIV infection. Rufina Mcelan MD LAB - CHEMISTRY NIDIA DEVINE [facility] [address] [place] [address] * PAP LB HPV HR DNA (09/11/2017 2:03 PM SEMICONDUCTOR PACKAGES TESTER) Diagnosis Comment 09/15/2017 7:07 PM SEMICONDUCTOR PACKAGES TESTER [facility] Comment: NEGATIVE FOR INTRAEPITHELIAL LESION AND MALIGNANCY. FUNGAL ORGANISMS MORPHOLOGICALLY CONSISTENT WITH HARJEET SPECIES ARE PRESENT. Specimen Adequacy Comment 017 7:07 PM SEMICONDUCTOR PACKAGES TESTER [facility] Comment: Satisfactory for evaluation. Endocervical and/or squamous metaplastic cells (endocervical component) are present. Performed by Comment 09/15/2017 7:07 PM SEMICONDUCTOR PACKAGES TESTER [facility] Comment:Lev Cramer Cytote chnologist (ASCP) Comment . 09/15/2017 7:07 PM SEMICONDUCTOR PACKAGES TESTER [facility] Pathologist Provided ICD10 Comment 09/15/2017 7:07 PM SEMICONDUCTOR PACKAGES TESTER [facility] Comment:R87.5 Note Comment 09/15/2017 7:07 PM SEMICONDUCTOR PACKAGES TESTER [facility] Comment: The Pap smear is a screening test designed to aid in the detection of premalignant and malignant conditions of the uterine cervix. It is not a diagnostic procedure and should not be used as the sole means of detecting cervical cancer. Both false-positive and false-negative reports do occur. Human papillomavirus High Risk Negative Negative 09/15/2017 7:07 PM SEMICONDUCTOR PACKAGES TESTER [facility] Comment: This high-risk HPV test detects thirteen high-risk types (16/18/31/33/35/39/45/51/52/56/58/59/68) without differentiation. Pathology/Cytolo gy MICROSCOPIC CYTOLOGIC EXAMINATION OF SMEAR OF SPECIMEN FROM FEMALE GENITAL TRACT PREPARED USING PAPANICOLAOU TECHNIQUE / Unknown Collection / Unknown 09/11/2017 2:03 PM SEMIC[employer]UCTOR PACKAGES TESTER 09/11/2017 2:53 PM SEMICONDUCTOR PACKAGES TESTER Narrative [facility] - 09/15/2017 7:07 PM SEMICONDUCTOR PACKAGES TESTER Performed at: 01 - [address] [id number] Fingernail Former: Laurel Jain MD, Phone: [phone] Performed at: 02 - [address] [id number] Fingernail Former: Laurel Jain MD, Phone: [phone] Specimen Comment: Source.............End[employer]ix Specimen Comment: No. of containers..01 ThinPrep Vial Rufina Mclean MD LAB - PATHOLOGY/CYTO LOGY ORDERABLES [facility]) [address] [place] [address] from Last 3 Months or Most Recently Relevant to Health Maintenance Advance Directives * Full Code (Latest Code Status on File) Date Activated Date Inactivated Comments 12/28/2022 11:13 AM 01/09/2023 3:22 PM
--- OUTSIDE RECORDS SUMMARY | 2025-01-17 15:08 | XMS_ITS ---
Author Organization [facility] [employer] [facility] Address [facility] [facility] [address] [place] [address] Care Team Providers Care Limehouse Worker Name Role Phone Josafat Jeong, Caridad Primary Care Provider Unavail able Song Holland Unavailable [phone] Loepker FAMILY DEVELOPMENT EXTENSION SPECIALIST-C, Kristen Unavailable Unavailabl e REASON FOR VISIT New Patient Visit Social History Sex Assigned At : Social History Observation Description Sex Assigned At Female Encounters Encounter Location Date Provider Diagnosis [facility] [employer] [place] [address] [address] 10/10/2024 Song Holland Plan Of Treatment No Information Progress Notes * ROCKY RAE DDOB: (39 yo F)Acc No.[id number]:10/10/2024 Patient: Conchis DOUGLAS ROCKY Priscilla Provider: Dedra HOLLAND MD :1985 A ge:39 Y S ex:Female Date:10/10/2024 Address:[address], [facility] Pcp:Mariella Fay MD Subjective: * Chief Complaints: * N ew Patient Visit * Medical History: * Surgical History: * Hospitalization/Major Diagno stic Procedure: * Medications: Objective: * Vitals: Assessment: Plan: * Treatment: * Procedure Codes: * Billing Information: * Visit Code: * Procedure Codes: * CARE COORDINATOR Sign off status: Completed true * Provider: Dedra HOLLAND MD Date: 1 12/11/2023 Generated for Charbel lindsay/Marcial/Linda on: 0 01/17/2025 03:08 PM CDT
--- OUTSIDE RECORDS SUMMARY | 2025-01-17 15:09 | XMS_ITS ---
Author Organization [facility] [employer] [facility] Address [address] [address] Care Team Providers Care Veneer Drier Name Role Phone Josafat Jeong, Caridad Primary Care Provider Unavail able Song Whitfield Unavailable [phone] Sissy SHORT GOODS DRIER-C, Kristen Unavailable Unavailabl e Migration, Provider Unavailable Unavailable REASON FOR VISIT EMR-[facility] Medications Medication SIG (Take, Route, Fr equency, Duration) Notes Start Date End Date Status OLANZapine 7.5 MG Oral 03/21/2023 A ctive OLANZapine 15 MG Oral 03/21/2023 Ac tive Social History Sex Assigned At : Social History Observation Description Sex Assigned At Female Encounters Encounter [facility] [address] [address] 03/10/2024 Provider Migration Plan Of Treatment No Information Progress Notes * MICHAEL RAEB:05/23 (38 yo F)Acc No.[id number]:03/10/2024 Patient: KIMI COULTERNA :1985 A ge:38 Y S ex:Female Address:[facility] [address], [place], [address] Subjective: * Chief Complaints: * E MR-Carson * Medical History: * 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 * Surgical History: R emoval of gallbladder (33386) 03/23/2004Any surgical history 07/19/2022 * Hospitalization/Major Diagno stic Procedure: * Family History: U nspecified Relation: Bipolar disorder . * Social History: M igrated Social History: M igrated Social History: Alcohol Intake: Occasional 03/06/2023,Tobacco Years: Former smoker 03/06/2023. * Medications: T akingOLANZapine 7.5 MG Tablet Oral OLANZapine 15 MG Tablet Oral Taking OLANZapine 7.5 MG Tablet Oral Taking OLANZapine 15 MG Tablet Oral Objective: * Vitals: * Physical Examination: Assessment: Plan: * Treatment: * Procedure Codes: * true * Date: Generated for Charbel lindsay/Marcial/Linda on: 0 01/17/2025 03:08 PM CDT
--- OUTSIDE RECORDS SUMMARY | 2025-01-17 15:09 | XMS_ITS | Patient Health Record ---
Author Organization [facility] [employer] [facility] Address [facility] [address] [address] Care Team Providers Care Sterile Process Coordinator Name Role Phone Josafat Jeong, Caridad Primary Care Provider Unavail able Song Whitfield Unavailable [phone] Netoker IT CONSULTANT-C, Kristen Unavailable Unavailabl e Migration, Provider Unavailable Unavailable Allergies No Known Allergies Reason For Referral No Information Medications Medication SIG (Take, Route, Fr equency, Duration) Notes Start Date End Date Status OLANZapine 7.5 MG Oral 03/21/2023 A ctive OLANZapine 15 MG Oral 03/21/2023 Ac tive Social History Sex Assigned At : Social History Observation Description Sex Assigned At Female Encounters Encounter Location Date Provider Diagnosis [address] [address] 10/10/2024 Song Whitfield [address] [address] 03/09/2024 Provider Migration [address] [address] 03/10/2024 Provider Migration Plan Of Treatment No Information Insurance Providers Payer Name Payer Address Payer Phone Subscriber Number Group Number Insured Name Patient Relationship to Insured Coverage Start Date Coverage End Date [place]- [place] [address] [place] [phone] [id number] ROCKY RAE Self - patient is the insured [place]- [place] [address] [address] [place] [address] [id number] ROCKY RAE Self - patient is the insured Medical (General) History Surgical History Surgery Date(Month/Year) Removal of gallbladder (81354) 4 Any surgical history 07/19/2022
--- OUTSIDE RECORDS SUMMARY | 2025-01-17 15:09 | XMS_ITS | Clinical Summary ---
Author Organization [facility] Address [address] [place] [address] Care Team Providers Care Sorter Laundry Articles Name Role Phone Jennifer Ching DO Primary Care Provider Allergies No known active allergies Medications No known medications Social History Tobacco Use Types Packs/Day Years Used Date Smoking Tobacco: Former Cigarettes Q uit: 2020 Smokeless Tobacco: Never Tobacco Cessation:Counseling Given: Not Answered Alcohol Use Standard Drinks/Week Comments Never 0 (1 standard drink = 0.6 oz pur e alcohol) Comments Unknown Sex and Gender Information Value Date Recorded Sex Assigned at Not on file Legal Sex Female 6:30 PM CDT Gender Identity Not on file Sexual Orientation Not on file Last Filed Vital Signs Vital Sign Reading Time Taken Comments Blood Pressure 117/77 12/28/2022 8:53 AM DOME[employer]IC [employer] ADVOCATE Pulse 78 12/28/2022 8:53 AM DOMESTIC [employer]ENCE ADVOCATE Temperature 36.3 C (97.4 F) 12/28/2022 8:53 AM DOMESTIC VIOLENCE ADVOCATE Respiratory Rate 18 12/28/2022 8:53 AM DOMESTIC VIOLENCE ADVOCATE Oxygen Saturation 100% 12/28/2022 8:53 AM DOMESTIC VIOLENCE ADVOCATE Inhaled Oxygen Concentration - - Weight 66.7 kg (147 lb) 12/27/2022 6:26 PM DOMESTIC VIOLENCE ADVOCATE Height 162.6 cm (5' 4 ) 12/27/2022 6:26 PM DOMESTIC VIOLENCE ADVOCATE Body Mass Index 25.23 12/27/2022 6:26 PM DOMESTIC VIOLENCE ADVOCATE Plan of Treatment Health Maintenance Due Date Last Done Comments Cervical Cancer Screening Pa p Smear (Age 30 to 64) Every 3 Years 1984 Annual Physical 1987 Hepatitis C 2002 DTaP, Tdap and Td Vaccines ( 1 - Tdap) 2003 Hepatitis B Vaccines (1 of 3 - 19+ 3-dose series) 2003 Cervical Cancer Screening Pa p with HPV Testing (Age 30 to 64) Every 5 Years 2014 Cervical Cancer Screening with HPV 2014 Mammogram Screening 2024 COVID-19 Vaccine (1 - 2023-2 5 season) 2024 Influenza Adult (#1) 2024 08/22/2018 HPV Vaccines Aged Out No longer eligi ble based on patient's age to complete this topic Meningococcal B Vaccine Aged Out No l onger eligible based on patient's age to complete this topic Meningococcal Vaccine Aged Out No lydia nesha eligible based on patient's age to complete this topic Pneumococcal Vaccine: Pediat rics (0 to 5 Years) and At-Risk Patients (6 to 64 Years) Aged Out No longer eligi ble based on patient's age to complete this topic RSV Immunizations Under 20 Months Aged Out No longer eligible based on patient's age to complete this topic Insurance MEDICAID MEDICARE [facility] Care Teams Sorter Laundry Articles Relationship Specialty Start Date End Date Jennifer Ching DO PCP - General OBGYN 12/27/22
[2025-01-17 15:15] VITALS: BP 129/84; PULSE 101; RESP 18; TEMP 36.8; O2SAT 100
--- NOTE | 2025-01-17 15:24 | ED.SKABFB ---
HPI - Skin/Abscess/Foreign Bdy General Chief complaint: Skin/Abscess/Foreign Body Stated complaint: ring worm Time Seen by Provider: 01/17/25 15:18 Source: patient Mode of arrival: ambulatory Limitations: no limitations History of Present Illness HPI narrative: Malcom is a 39-year-old female patient presenting to the clinic today with complaints of possible ringworm. She reports that she has had this for approximately 2 weeks. Has multiple raised pustular bumps on her face that are somewhat painful. Has been using clotrimazole cream and blue star cream. States her symptoms are not resolving. History of bipolar and psychiatric delusions. Related Data Allergies Allergy/AdvReac Type Severity Reaction Status Date / Time No Known Allergies Allergy Verified 01/17/25 15:18 Review of Systems Review of Systems: Pertinent positives per HPI. Patient denies any fever, chills, headache, visual changes, dizziness, cough, runny nose, sore throat, shortness of breath, chest pain, palpitations, nausea, vomiting, diarrhea, constipation, abdominal pain, or any urinary issues. FORMERLY [facility], [facility]–1983 Past Medical History Medical History Anxiety Bipolar disorder Surgical History Surgical History H/O dilation and curettage History of reversal of tubal ligation H/O tubal ligation Family History Family History Grandparent Hypertension Family history of coronary artery disease Father Cancer Other Family history of lupus erythematosus Social History Social History Smoking status: Former smoker Tobacco type: cigarettes Second hand tobacco smoke exposure: No Alcohol intake: never Substance use: current Substance use type: marijuana Do You Feel Safe in your Home?: Yes Lack of Transportation: No Lack of Food: Never True Current Housing: I Have Housing Concerned About Future Housing: No Difficulty Paying Gas/Electric Bills: No Difficulty Paying for Meds: No Currently Unemployed: No Education: Master's Degree or Higher Difficulty w/ Childcare or Family Care: No Living arrangements: alone Occupation/Education: unemployed Spiritual care concerns: No Agree to blood products: No Comments At the time of my signature, I reviewed and agree with the nursing past medical, surgical, social, and family history. There is no relevant family history pertinent to the patient complaint. Exam Narrative: General: Well-developed, well nourished, in no apparent distress Head: Normocephalic, atraumatic. Cardio: Regular rate and rhythm, s1 and s2 normal, no murmur appreciated. Resp: Clear to auscultation bilaterally, no rhonchi, rales, wheezing or rubs. Integumentary: Oolitic, warm, and dry, red, raised, painful pustular lesions to the face. Course Course Emergency Course: Portions of this record may have been created with voice recognition software. Level of Care: Express Care Visit Vital Signs Vital signs: Vital Signs Temperature 36.8 C 01/17/25 15:15 Pulse Rate 101 H 01/17/25 15:15 Respiratory Rate 18 01/17/25 15:15 Blood Pressure 129/84 01/17/25 15:15 Pulse Oximetry 100 01/17/25 15:15 Oxygen Delivery Room Air 01/17/25 15:15 Temperature 36.8 C 01/17/25 15:15 Pulse Rate 101 H 01/17/25 15:15 Respiratory Rate 18 01/17/25 15:15 Blood Pressure 129/84 01/17/25 15:15 Pulse Oximetry 100 01/17/25 15:15 Oxygen Delivery Room Air 01/17/25 15:15 Vital signs reviewed MDM - Skin/Abscess/Foreign Bdy MDM Narrative Medical decision making narrative: At the time of visit patient is resting comfortably on the exam table. Patient appears to be nontoxic. Plan: I suspect patient has acne. Encourage patient to use benzoyl peroxide to wash her face daily. Will give prescription for doxycycline x 1 week as she reports that it is getting worse and more painful over the last 2 weeks. Follow up with her PCP/dermatology. Supportive measures were discussed with the patient and they voiced understanding discharge instructions and agrees to treatment plan. Return precautions reviewed Differential Diagnosis Differential diagnosis: Likely abscess of skin or subcutaneous tissue, viral exanthem, dermatophytosis, urticaria, herpes zoster, allergic reaction to drug, cellulitis, eczema, insect bites, impetigo, contact dermatitis and other (Acne) Discharge Plan Discharge Clinical Impression: Acne Qualifiers: Acne type: unspecified acne Qualified Code(s): L70.9 - Acne, unspecified Patient Disposition: Home, Self-Care Condition: Stable Instructions: Antibiotic Form, Benzoyl Peroxide (On the skin) Additional Instructions: Wash your face daily with benzyl peroxide Take doxycycline as prescribed Follow-up with your primary care doctor or assembly mechanic. Patient Language: Welsh Prescriptions: New doxycycline monohydrate 100 mg capsule 100 mg PO BID 7 Days Qty: 14 0RF Follow-up/Referrals: UNKNOWN,DOCTOR [Primary Care Provider] - Time of Disposition: 15:23 Quality NIHSS Nursing Documentation ED NIHSS nursing documentation: reviewed/agree
== END 2025-01-17 15:26 | disposition home or self-care (01) ==
PROVIDERS: Emergency Provider Nurse Practitioner Family
DX: L70.9 Acne, unspecified (principal); Z87.891 Personal history of nicotine dependence
CPT/HCPCS: 99213; G0463